=== PATIENT | female | born 1950 | race Caucasian/White ===

== ENCOUNTER 2020-12-01 12:56 | Outpatient (CLI) | payer MEDICARE, MEDICAID, SELFPAY ==
--- NOTE | 2020-12-01 13:01 | CT_ITS ---
WS: [id number] LDCT LUNG CANCER SCREENING HISTORY: TOBACCO USE TECHNIQUE: Axial imaging performed from the apices to 1 cm below the costophrenic angles. Coronal and sagittal reformats are submitted with axial MIP series. All CT scans at [facility] use at least one of these dose optimization techniques: automated exposure control; mA and/or kV adjustment per patient size (includes targeted exams where dose is matched to clinical indication); or iterativ e reconstruction. DLP: 52.6 mGy.cm DIvol: 1.58 mGy COMPARISON: None available. Diagnostic quality: Satisfactory Lung Nodules: No pulmonary nodules or endobronchial lesions. Lungs: Mild pulmonary hyperexpansion. Benign appearing calcifications in the medial RIGHT lower lobe. Heart: Moderate enlargement the cardiac chambers. Other findings: Moderate atherosclerosis aorta and proximal great vessels. Pulmonary artery size is n ormal. Splenic granulomata. CT/CT lung screening [id number] IMPRESSION: LUNG-RADS: 1-Negative FOLLOW UP: 12 Month: Continue annual screening with LDCT OTHER FINDINGS (S MODIFIER): None.
== END 2020-12-01 12:57 | disposition home or self-care (01) ==
LOC: CT 13:00
PROVIDERS: PCP Physician Assistant; Visit Provider Physician Assistant
DX: Z12.2 Encounter for screening for malignant neoplasm of respiratory organs (principal); Z87.891 Personal history of nicotine dependence
CPT/HCPCS: 71271

== ENCOUNTER 2021-01-09 13:41 | Outpatient (CLI) | payer MEDICARE, MEDICAID, SELFPAY ==
--- NOTE | 2021-01-09 13:57 | USCV_ITS ---
Chastity Benedict Age: 70 Gender: F : 1950 Exam Date: 01/09/2021 14:15 Ordering Phys: Angelina Clolazo Technologist: BENNETT Exam Location: [facility] [place] Indication: MURMUR BP: 140 / 60 HR: 62 Rhythm: Sinus Technical Quality: Adequate MEASUREMENTS (Male / Female) Normal Values 2D ECHO LV Diastolic Diameter PLAX 3.4 cm 4.2 - 5.9 / 3.9 - 5.3 cm LV Systolic Diameter PLAX 2.6 cm IVS Diastolic Thickness 1.6 cm 0.6 - 1.0 / 0.6 - 0.9 cm IVS Systolic Thickness 2.2 cm LVPW Diastolic Thickness 1.6 cm 0.6 - 1.0 / 0.6 - 0.9 cm LVPW Systolic Thickness 1.9 cm LVOT Diameter 2.0 cm LV Ejection Fraction 2D Teich 46.0 % LV Ejection Fraction MOD 2C 62.2 % LV Ejection Fraction 2C AL 64.8 % LA Diameter 3.7 cm LA Width 3.0 cm LA Height 3.8 cm RA Width 2.4 cm RA Height 3.1 cm Aorta at Sinotubular Diameter 1.9 cm M-MODE Aortic Annulus Diameter 2.1 cm LA Ao Ratio MM 1.8 MV E Point Septal Separation 0.4 cm DOPPLER AV Peak Velocity 248.0 cm/s LVOT Peak Velocity 121.0 cm/s AV Area Cont Eq vti 1.5 cm squared AV Area Cont Eq pk 1.5 cm squared MV Peak Velocity 163.0 cm/s MV Area PHT 3.9 cm squared Mitral E to A Ratio 1.1 MV E' Velocity 55.0 cm/s Mitral E to MV E' Ratio 12.6 Mitral E to LV E' Lateral Ratio 13.0 Mitral E to LV E' Septal Ratio 12.3 TR Peak Velocity 270.4 cm/s TR Peak Gradient 29.2 mmHg TR Mean Velocity 173.6 cm/s TR Mean Gradient 13.5 mmHg TR Velocity Time Integral 77.4 cm TV Peak E Velocity 45.0 cm/s Right Atrial Pressure 3.0 mmHg Pulmonary Artery Systolic Pressu 32.2 mmHg PV Peak Velocity 126.0 cm/s RV Acceleration Time 0.1 s RV Ejection Time 0.3 s RV AcT/ET 0.3 FINDINGS Left Ventricle Normal left ventricular size and systolic function, EF 68 %. Mild left ventricular hypertrophy. No regional wall motion abnormalities. Grade I/IV diastolic dysfunction (abnormal relaxation filling pattern), normal to mildly elevated filling pressures. Right Ventricle The right ventricle is normal in size and function. Right Atrium The right atrium is normal in size. Left Atrium Mildly increased left atrial size. Mitral Valve Thickened mitral valve. Mild mitral annular calcification. Moderate mitral valve regurgitation. Aortic Valve Thickened aortic valve. Mild aortic valve regurgitation. Tricuspid Valve Trace to mild tricuspid valve regurgitation. Estimated PA pressure of 32 mmHg Pulmonic Valve No pulmonary valve stenosis. Pericardium Trivial pericardial effusion. Aorta Normal aortic annulus size. CONCLUSIONS Normal left ventricular size and systolic function, EF 68 %. Mild left ventricular hypertrophy. No regional wall motion abnormalities. Grade I/IV diastolic dysfunction (abnormal relaxation filling pattern), normal to mildly elevated filling pressures. Mildly increased left atrial size. Thickened mitral valve. Mild mitral annular calcification. Moderate mitral valve regurgitation. Thickened aortic valve. Mild aortic valve regurgitation. Trace to mild tricuspid valve regurgitation. Estimated pulmonary artery peak systolic pressure of 32 mmHg There is no pericardial effusion. There are no intracardiac masses. Compared to the previous study from 08/25/17, there is some worsening of the mitral regurgitation Dr Donya Mar MD [facility] (Electronically Signed) Final Date: 12 January 2021 18:17 S
--- NOTE | 2021-01-09 15:02 | MM_ITS ---
WS: [id number] BILATERAL DIGITAL SCREENING MAMMOGRAPHY WITH CAD CLINICAL INFORMATION: SCREENING HISTORY: Screening mammogram. No current complaints. COMPARISON: TECHNIQUE: Bilateral CC and MLO views. FINDINGS: Scattered fibroglandular densities bilaterally. Vascular calcification. Dystrophic calcification. A f ew benign punctate calcifications. No suspicious focal mass, asymmetry, calcifications, or architectu ral distortion. No evidence of malignancy. MM/[id number] IMPRESSION: BI-RADS: 2-Benign FOLLOW UP: 1 Year Follow-up Recommend return to annual screening mammography.
--- NOTE | 2021-01-09 15:41 | XR_ITS ---
WS: [id number] DEXA (DUAL ENERGY X-RAY ABSORPTIOMETRY) Bone mineral density was performed using a [employer] machine. HISTORY: POST MENOPAUSAL COMPARISON: 02/17/2018 Lumbar spine BMD (L1-L4): 1.006 g/cm2 T score: -1.5 Z score: 0.0 Total hip BMD: Left: 0.717. T score: -2.3 Z score: -0.7 Right: 0.701. T score: -2.4 Z score: -0.8 10 year probability of a major osteoporotic fracture is 22%. Compared to the prior study from 02/17/2018. Lumbar spine bone mineral density has increased by 21.4%. Bilateral hips bone mineral density has decrease by 1.1%. XR/XR DEXA axial skeleton* [id number] IMPRESSION: OSTEOPENIA based upon the WHO classification for females. Significant increase in bone mineral density within the lumbar spine since the prior study.
== END 2021-01-09 13:42 | disposition home or self-care (01) ==
LOC: RAD 13:48
PROVIDERS: PCP Physician Assistant; Visit Provider Physician Assistant
DX: Z12.31 Encounter for screening mammogram for malignant neoplasm of breast (principal); Z78.0 Asymptomatic menopausal state; M85.88 Other specified disorders of bone density and structure, other site; I08.0 Rheumatic disorders of both mitral and aortic valves
CPT/HCPCS: 77067; 77080; 93306

== ENCOUNTER 2022-01-28 08:14 | Outpatient (CLI) | payer MEDICARE, MEDICAID, SELFPAY ==
--- NOTE | 2022-01-28 08:26 | MM_ITS ---
WS: [id number] BILATERAL SCREENING DIGITAL BREAST TOMOSYNTHESIS MAMMOGRAM WITH CAD HISTORY: SCREENING COMPARISON: 01/09/2021 and 11/15/2018 Bilateral CC and MLO views with tomosynthesis and synthetic mammography submitted. Computer aided det ection analyzed. Breast composition: There are scattered areas of fibroglandular density. No suspicious masses, microc alcifications or architectural distortion. Benign calcifications in each breast. MM/[place] [id number] IMPRESSION: BI-RADS: 2-Benign FOLLOW UP: 1 Year Follow-up
== END 2022-01-28 08:15 | disposition home or self-care (01) ==
LOC: RAD 08:17
PROVIDERS: PCP Physician Assistant; Visit Provider Physician Assistant
DX: Z12.31 Encounter for screening mammogram for malignant neoplasm of breast (principal)
CPT/HCPCS: 77063; 77067

== ENCOUNTER 2022-06-21 08:58 | Outpatient (CLI) | payer MEDICARE, MEDICAID, SELFPAY ==
--- NOTE | 2022-06-21 09:02 | CT_ITS ---
WS: [id number] LDCT LUNG CANCER SCREENING TECHNIQUE: Noncontrast CT of the chest with coronal and sagittal reformatted images. CLINICAL INFORMATION: HX OF TOBACCO USE COMPARISON: December 01, 2020 DLP: 67.70 mGy.cm DIvol: Mean CTDIvol: 1.60 (mGy) All CT scans at [facility] use at least one of these dose optimization techniques: automat ed exposure control; mA and/or kV adjustment per patient size (includes targeted exams where dose is matched to clinical indication); or iterative reconstruction. FINDINGS: Moderate chronic emphysematous changes. No acute pulmonary infiltrates. No focal pneumonia or pleural fluid. Bibasilar atelectasis. Calcified granulomas. No new suspicious pulmonary parenchymal opacitie s. Normal caliber thoracic aorta. Aortic calcification. Coronary calcification. No mediastinal or hilar lymphadenopathy. No axillary lymphadenopathy. Adrenal glands are normal. Splenic granulomas. Small esophageal hiatal hernia. Cardiomegaly. CT/CT lung screening [id number] IMPRESSION: LUNG-RADS: 1-Negative FOLLOW UP: 12 Month: Continue annual screening with LDCT
== END 2022-06-21 08:59 | disposition home or self-care (01) ==
LOC: RAD 08:58
PROVIDERS: PCP Physician Assistant; Visit Provider Physician Assistant
DX: Z12.2 Encounter for screening for malignant neoplasm of respiratory organs (principal); Z87.891 Personal history of nicotine dependence
CPT/HCPCS: 71271

== ENCOUNTER 2022-12-28 14:11 | Outpatient (CLI) | payer MEDICARE, MEDICAID, SELFPAY ==
--- NOTE | 2022-12-28 14:18 | XR_ITS ---
WS: [id number] DEXA (DUAL ENERGY X-RAY ABSORPTIOMETRY) Bone mineral density was performed using a [employer] machine. HISTORY: OSTEOPOROSIS COMPARISON: 01/09/2021 Lumbar spine BMD (L1-L4): 1.089 g/cm2 T score: -0.8 Z score: 0.7 Total hip BMD: Left: 0.804 g/cm2. T score: -1.6 Z score: -0.1 Right: 0.803 g/cm2. T score: -1.6 Z score: -0.2 10 year probability of a major osteoporotic fracture is 23% Compared to the prior study from 01/09/2021. Lumbar spine bone mineral density has increased by 8.3%. Bilateral hips bone mineral density has increased by 3.9%. XR/XR DEXA axial skeleton* [id number] IMPRESSION: OSTEOPENIA based upon the WHO classification for females. Significant increase in bone mineral density since the prior study.
== END 2022-12-28 14:12 | disposition home or self-care (01) ==
LOC: RAD 14:15
PROVIDERS: PCP Physician Assistant; Visit Provider Physician Assistant
DX: M81.0 Age-related osteoporosis without current pathological fracture (principal)
CPT/HCPCS: 77080

== ENCOUNTER 2023-12-16 09:38 | Outpatient (CLI) | payer MEDICARE, MEDICAID, SELFPAY ==
--- NOTE | 2023-12-16 09:42 | CT_ITS ---
WS: [id number] LDCT LUNG CANCER SCREENING HISTORY: HX OF TOBACCO USE TECHNIQUE: Axial imaging performed from the apices to 1 cm below the costophrenic angles. Coronal and sagittal reformats are submitted with axial MIP series. All CT scans at [facility] use at least one of these dose optimization techniques: automated exposure control; mA and/or kV adjustment per patient size (includes targeted exams where dose is matched to clinical indication); or iterativ e reconstruction. DLP: 72.72 mGy.cm DIvol: Mean CTDIvol: 1.80 (mGy) COMPARISON: 06/21/2022 Diagnostic quality: Satisfactory Lungs: Chronic emphysema. Lung volumes are decreased due to poor inspiration. Dependent changes at th e lung bases. Subsegmental atelectasis at the LEFT lung base is unchanged. No pulmonary mass or nodul e. No pneumonia. Heart: Moderate enlargement of the heart.. No pericardial effusion. Other findings: Moderate atherosclerosis thoracic aorta extending into the great vessels. No adenopat hy. Hilar regions are poorly visualized due to the lack of contrast. There are a few benign calcified RIGHT hilar lymph nodes. Hepatic and splenic granulomas. Increase in thoracic kyphosis and scoliosis . CT/CT lung screening [id number] IMPRESSION: LUNG-RADS: 1-Negative FOLLOW UP: 12 Month: Continue annual screening with LDCT OTHER FINDINGS (S MODIFIER): None.
== END 2023-12-16 09:39 | disposition home or self-care (01) ==
LOC: RAD 09:38
PROVIDERS: PCP Physician Assistant; Visit Provider Physician Assistant
DX: Z87.891 Personal history of nicotine dependence (principal); Z12.2 Encounter for screening for malignant neoplasm of respiratory organs
CPT/HCPCS: 71271

== ENCOUNTER 2023-12-26 08:59 | Outpatient (CLI) | payer MEDICARE, MEDICAID, SELFPAY ==
--- NOTE | 2023-12-26 09:07 | MM_ITS ---
WS: [id number] BILATERAL SCREENING DIGITAL TOMOSYNTHESIS MAMMOGRAM WITH CAD HISTORY: SCREENING COMPARISON: 01/28/2022 and 01/09/2021 Bilateral CC and MLO views with tomosynthesis and synthetic mammography submitted. Computer aided det ection analyzed. Breast composition: There are scattered areas of fibroglandular density. No suspicious masses, microc alcifications or architectural distortion. Moderate bilateral benign vascular calcifications and scat tered calcifications. MM/[id number] IMPRESSION: BI-RADS: 2-Benign FOLLOW UP: 1 Year Follow-up
== END 2023-12-26 09:00 | disposition home or self-care (01) ==
LOC: RAD 08:59
PROVIDERS: PCP Physician Assistant; Visit Provider Physician Assistant
DX: Z12.31 Encounter for screening mammogram for malignant neoplasm of breast (principal)
CPT/HCPCS: 77063; 77067

== ENCOUNTER 2025-01-09 13:05 | Outpatient (CLI) | payer OTHER, MEDICAID, SELFPAY ==
--- NOTE | 2025-01-09 13:11 | CT_ITS ---
WS: [id number] LDCT LUNG CANCER SCREENING TECHNIQUE: Noncontrast CT of the chest with coronal and sagittal reformatted images. CLINICAL INFORMATION: HX OF TOBACCO USE COMPARISON: Lung screening 12/16/2023 DLP: 60.82 mGy.cm DIvol: Mean CTDIvol: 1.50 (mGy) All CT scans at [facility] use at least one of these dose optimization techniques: automated exposure control; mA and/or kV adjustment per patient size (includes targeted exams where dose is matched to clinical indication); or iterative reconstruction. FINDINGS: Mild chronic emphysematous calcified granuloma RIGHT lower lobe. Subsegmental atelectasis in the lung bases. No new suspicious pulmonary parenchymal abnormalities. Aortic calcification. Coronary calcification. No mediastinal or hilar lymphadenopathy. Calcified subcarinal lymph nodes. No axillary lymphadenopathy. Small esophageal hiatal hernia. Splenic granulomas. Small splenule. Adrenal glands are normal. CT/CT lung screening [id number] IMPRESSION: LUNG-RADS: 1-Negative FOLLOW UP: 12 Month: Continue annual screening with LDCT
--- NOTE | 2025-01-09 13:25 | XR_ITS ---
WS: [email or web address] SCREENING DEXA SCAN [employer] CLINICAL INFORMATION: POST MENOPAUSAL COMPARISON: 2022 FINDINGS: The L1-L4 bone mineral density measures 1.223 g/cm2. This corresponds to a T score score of 0.4 and Z score of 1.8. Left femoral neck bone mineral density measures 0.810 g/cm2. This corresponds to a T score of -1.6 and Z score of 0.0. Right femoral neck bone mineral density measures 0.850 g/cm2. This corresponds to a T score -1.3of and Z score of 0.3. Mean femoral neck bone mineral density measures 0.830 g/cm2. This corresponds to a T score of -1.4 and Z score of 0.2. XR/XR DEXA axial skeleton* [id number] IMPRESSION: Normal bone mineralization lumbar spine. Osteopenia femoral necks. Patient's FRAX calculated 10 year probability for major osteoporotic fracture i s 14.6% and osteoporotic hip fracture is 4.2%. Bone mineral density lumbar spine increased 12.3% Bone mineral density femoral necks increased 3.2%
== END 2025-01-09 13:06 | disposition home or self-care (01) ==
PROVIDERS: PCP Physician Assistant; Visit Provider Physician Assistant
DX: Z12.2 Encounter for screening for malignant neoplasm of respiratory organs (principal); Z87.891 Personal history of nicotine dependence; Z78.0 Asymptomatic menopausal state; M85.88 Other specified disorders of bone density and structure, other site; J84.10 Pulmonary fibrosis, unspecified; J98.11 Atelectasis; I70.0 Atherosclerosis of aorta; I25.10 Atherosclerotic heart disease of native coronary artery without angina pectoris; R59.0 Localized enlarged lymph nodes; K44.9 Diaphragmatic hernia without obstruction or gangrene; D73.89 Other diseases of spleen
CPT/HCPCS: 71271; 77080